=== PATIENT | female | born 1960 | race Caucasian/White ===

== ENCOUNTER 2018-01-13 16:39 | Emergency (ER) | payer SELFPAY ==
[~2018-01-13] VITALS: Ht 170.2 cm; Wt 90.7 kg
[2018-01-13] MEDS ORDERED: SODIUM CHLORIDE 0.9% 500 ML IV ONE (17:02)
[2018-01-13] MEDS ORDERED: MORPHINE SULFATE 4 MG/ML SYR/VIAL IV ONE (17:15)
[2018-01-13] MEDS ORDERED: ONDANSETRON HCL 4 MG/2 ML VIAL IV ONE (17:15)
[2018-01-13 18:30] LABS: Basophils # (auto) 0 uL; Basophils % (auto) 0.1 % (0.0-2.0); Eosinophils # (auto) 0 uL; Eosinophils % (auto) 0.1 % (0.0-7.0); Hematocrit 44.9 % (36.0-46.0); Hemoglobin 14.9 g/dL (12.2-16.2); Lymphocytes # (auto) 0.9 uL; Lymphocytes % (auto) 3.6 % (10.0-50.0); Mean Corpuscular Hemoglobin 30.6 pg (28.0-32.0); Mean Corpuscular Hgb Conc. 33.1 g/dL (32.0-36.0); Mean Corpuscular Volume 92.6 fL (80.0-100.0); Monocytes # (auto) 1.3 uL; Monocytes % (auto) 5.2 % (0.0-12.0); Neutrophils # (auto) 23.1 uL; Nucleated Red Blood Cells % 0.1 %; Platelet Count (auto) 275 10^3/uL (140-450); Red Blood Cells 4.85 10^6/uL (4.0-5.20); White Blood Cell 25.4 10^3/uL (4.4-10.8)
[2018-01-13 18:32] LABS: Albumin 3.5 g/dL (3.4-5.0); BUN/Creatinine Ratio 9.1; Calcium 9.1 mg/dL (8.5-10.1)
[2018-01-13 18:34] LABS: Bilirubin, Total 0.6 mg/dL (0.2-1.0)
[2018-01-13] MEDS ORDERED: methylPREDNISolone SOD SUCC 125 MG/2 ML VL IV ONE (21:15)
[2018-01-14 02:55] LABS: Magnesium 1.9 mg/dL (1.6-2.6)
[2018-01-14 03:03] LABS: INR 1.12 (0.9-1.15); Partial Thromboplastin Time 32.8 sec (22.64-33.71); Prothrombin Time 12.2 sec (9.37-12.3)
[2018-01-14 03:22] VITALS: BP 113/79
[2018-01-14] MEDS ORDERED: CEFTRIAXONE SODIUM 2 GM in D5W 5% 50 ML IV ONE (04:00)
[2018-01-14] MEDS ORDERED: cefTRIAXone 1GM/10ml IVPUSH 20 ML IV ONE (04:52)
[2018-01-14 05:03] LABS: Urine Bacteria FEW /hpf (None Seen); Urine Blood Negative /uL (Negative); Urine Hyaline Cast MANY /lpf (0 - 2); Urine Mucus FEW (None Seen); Urine Specific Gravity 1.026 (1.001-1.035); Urine WBC 15 /hpf (0 - 5)
== END 2018-01-14 05:26 | disposition home or self-care (01) ==
LOC: ER 16:43
DX: G89.4 Chronic pain syndrome (principal); R07.9 Chest pain, unspecified; N39.0 Urinary tract infection, site not specified; M19.90 Unspecified osteoarthritis, unspecified site; E07.9 Disorder of thyroid, unspecified; M32.9 Systemic lupus erythematosus, unspecified; M79.7 Fibromyalgia; Z90.710 Acquired absence of both cervix and uterus; Z90.49 Acquired absence of other specified parts of digestive tract
CPT/HCPCS: 36415; 71045; 74176; 80053; 81001; 82150; 83690; 83735; 85025; 85610; 85730; 93005; 94761; 96361; 96365; 96375; 99285; J2270; J2405; J2930; J7030; J0696; J7060